=== PATIENT | female | born 1985 | race Caucasian/White ===

== ENCOUNTER 2017-04-15 14:26 | Emergency (ER) | payer MEDICAID ==
[2017-04-15 17:39] VITALS: BP 123/67
== END 2017-04-15 17:39 | disposition home or self-care (01) ==
LOC: ED 14:26
DX: K21.9 Gastro-esophageal reflux disease without esophagitis (principal)

== ENCOUNTER 2018-01-01 22:12 | Emergency (ER) | payer MEDICAID ==
[~2018-01-01] VITALS: Ht 160 cm; Wt 60.8 kg
[2018-01-01 22:30] VITALS: Ht 160 cm; Wt 60.8 kg
[2018-01-02 01:37] VITALS: BP 121/76
== END 2018-01-02 01:37 | disposition home or self-care (01) ==
LOC: ED 22:12
DX: K21.9 Gastro-esophageal reflux disease without esophagitis (principal)
CPT/HCPCS: Q0162

== ENCOUNTER 2018-03-16 08:30 | Emergency (ER) | payer MEDICAID ==
[~2018-03-16] VITALS: Ht 160 cm; Wt 61.2 kg
[2018-03-16 08:33] VITALS: BP 114/67; Ht 160 cm; Wt 61.2 kg
== END 2018-03-16 10:37 | disposition home or self-care (01) ==
LOC: ED 08:30
DX: J02.9 Acute pharyngitis, unspecified (principal)
CPT/HCPCS: J1885

== ENCOUNTER 2018-03-18 01:12 | Emergency (ER) | payer MEDICAID ==
[~2018-03-18] VITALS: Ht 160 cm; Wt 60.8 kg
[2018-03-18 01:30] VITALS: BP 119/70; Ht 160 cm; Wt 60.8 kg
== END 2018-03-18 02:08 | disposition home or self-care (01) ==
LOC: ED 01:12
DX: B08.4 Enteroviral vesicular stomatitis with exanthem (principal)

== ENCOUNTER 2018-12-18 03:34 | Emergency (ER) | payer MEDICAID ==
[~2018-12-18] VITALS: Ht 157.5 cm; Wt 64.4 kg
[2018-12-18 03:37] VITALS: Ht 157.5 cm; Wt 64.4 kg
[2018-12-18 05:14] VITALS: BP 127/81
== END 2018-12-18 05:14 | disposition home or self-care (01) ==
LOC: ED 03:34
DX: H65.91 Unspecified nonsuppurative otitis media, right ear (principal)

== ENCOUNTER 2020-09-17 13:32 | Emergency (ER) | payer MEDICAID ==
[~2020-09-17] VITALS: Ht 157.5 cm; Wt 61.2 kg
[2020-09-17 13:40] VITALS: BP 138/81; Ht 157.5 cm; Wt 61.2 kg
[2020-09-17] MEDS ORDERED: PYR200 PO (14:44)
[2020-09-17] MEDS ORDERED: CEPHALEXIN500 MG PO (14:44)
== END 2020-09-17 15:06 | disposition home or self-care (01) ==
LOC: ED 13:32
DX: N39.0 Urinary tract infection, site not specified (principal)